=== PATIENT | female | born 1950 | race Caucasian/White ===

== ENCOUNTER 2023-11-04 13:05 | Outpatient (CLI) | payer MEDICARE, OTHER | END 2023-11-04 13:06 | disposition home or self-care (01) | LOC: NM 13:05 | PROVIDERS: ATTEND Surgery | DX: R10.11 Right upper quadrant pain (principal); K82.8 Other specified diseases of gallbladder | CPT/HCPCS: 78227; A9537 ==

== ENCOUNTER 2025-06-20 10:15 | Outpatient (CLI) | payer MEDICARE, OTHER | END 2025-06-20 10:16 | disposition home or self-care (01) | LOC: SCSBT 10:15 | PROVIDERS: ATTEND Family Medicine Sports Medicine | DX: Z78.0 Asymptomatic menopausal state (principal); M81.0 Age-related osteoporosis without current pathological fracture | CPT/HCPCS: 77080 ==